=== PATIENT | female | born 1955 | race Caucasian/White ===

== ENCOUNTER 2018-02-28 07:30 | Day surgery (SDC) | payer BC ==
--- NOTE | 2018-02-11 06:29 | HP ---
CC: Dr. Roberto; Dr. Jordana Giordano; Dr. Duong Lama * PREOPERATIVE HISTORY AND PHYSICAL: DATE OF ADMISSION: 02/28/18 DATE OF PREOPERATIVE HISTORY AND PHYSICAL EXAMINATION: 02/10/18. This patient is scheduled for same-day surgery admission by Dr. Cruz on Saturday , 02/28/18. ATTENDING SURGEON: Dr. Cleo Cruz * (dictated by So Perez NP). CHIEF COMPLAINT: Left breast cancer. HISTORY OF PRESENT ILLNESS: The patient is a 62-year-old female, recently evaluated by Dr. Cruz for a new left breast cancer. The patient had a routine mammogram at the [facility] on 01/20/18 and indeterminate calcifications were noticed at the 12 o'clock position in the left breast; stereotactic biopsy was carried out on 01/23/18 at the [facility] and the pathology revealed ductal carcinoma in situ. The patient was not aware of any changes in the breast and denies pain. Maternal aunt had breast cancer, diagnosed at age 50. The patient's menarche was at age 13, menopause at age 51 , and first delivery was at age 33 and she did breast-feed. The patient has never had radiation to the chest; she had a benign right breast biopsy in 1999. She denies any family history of ovarian cancer. Dr. Cruz reviewed the findings with the patient and has recommended mammo-guided needle localization excision of the left breast ductal carcinoma in situ as a same-day surgery procedure. Dr. Cruz described the nature of the surgical procedure, the rationale for the procedure, the relevant risks and benefits, and today, I reviewed the expected postoperative care and recovery. The patient has had a chance to ask questions and stated that she understands the information and is satisfied with the answers given to her questions. She will sign surgical consent on the day of surgery. PAST MEDICAL HISTORY: Significant for acid reflux, laryngeal spasms occasionally at bedtime and weather related asthma and osteoporosis. PAST SURGICAL HISTORY: Excision of benign lesion, right breast in 1999 and office excision of a foreign body in her foot. MEDICATIONS: 1. Baclofen 10 mg p.o. every other night at bedtime for relief of laryngeal spasms. 2. Omeprazole 40 mg p.o. daily. 3. Alendronate 70 mg weekly on Saturday or Saturday. 4. Albuterol inhaler 2 puffs p.r.n. asthma, which she states is weather related. ALLERGIES: DEMEROL causes vomiting. FAMILY HISTORY: Maternal aunt diagnosed with breast cancer at age 50. No known ovarian cancer. No known anesthesia complications, bleeding tendencies, or clotting disorders. SOCIAL HISTORY: She is and is retired, but has a part-time job at [employer]. She is a nonsmoker and denies the use of alcohol or other substances. REVIEW OF SYSTEMS: Constitutional: No fevers, chills, excessive fatigue, or weight loss. Endocrine: No diabetes or thyroid disease or hormone replacement. Hematologic: No easy bruising or bleeding. No history of blood transfusions. Breasts: Abnormal left breast as described in history of present illness. Respiratory: No dyspnea on exertion. No recent asthma flares. No chronic cough. Cardiovascular: No anginal chest pain or palpitations. Gastrointestinal: History of GERD, controlled with omeprazole and associated laryngeal spasms controlled with baclofen. No nausea, vomiting, diarrhea, GI bleeding, or constipation. Genitourinary: No dysuria. Musculoskeletal: No back or joint pain. Neurologic: No headache or blurred vision. No areas of focal weakness. General: No previous anesthesia complications. No history of deep vein thrombosis or pulmonary embolism. PHYSICAL EXAMINATION GENERAL SURVEY: The patient is a 62-year-old female, well developed, well nourished, overweight, in no acute distress. VITAL SIGNS: Height 65 inches, weight 187 pounds, body mass index 31.1. Blood pressure 122/80, pulse 66 and regular, respiratory rate 18, temperature 98.1 tympanic. HEENT: Benign. NECK: Supple. No cervical lymphadenopathy. LUNGS: Breath sounds bilaterally clear and equal. HEART: Regular rate and rhythm. No murmurs or rubs appreciated. ABDOMEN: Obese, soft, nondistended, nontender throughout. Active bowel sounds. BREASTS: Symmetric. There is a scar in the upper outer quadrant of the right breast. Left breast without discrete masses and the stereotactic biopsy site is healed without any signs of infection. No mass is noted in the right breast. Nipples are normal to inspection. No nipple discharge. No palpable supraclavicular lymphadenopathy. No palpable axillary lymphadenopathy. PELVIC: Exam deferred. RECTAL: Exam deferred. EXTREMITIES: Warm without edema or skin ulceration. NEUROLOGIC: Alert and oriented x3, steady gait. SKIN: Warm, dry, intact. IMPRESSION: Malignant neoplasm, left breast. PLAN: Same-day surgery admission to Dr. Cruz's service on 02/28/18, for mammo-guided needle localization excision of the left breast ductal carcinoma in situ. TULIO PEREZ, TRAVEL ATTENDANTS [id number]/[facility] #: [id number] [facility]ITALCrispin
[~2018-02-28 07:30] MED LIST: Buffered Lidocaine 0.9% SYRIN* 5 ML/SYR SYRINGE INTRADERM ONE; Dexamethasone IV* 4 MG/ML 1 ML (4 MG) IV SLOW PU ONE; Famotidine IV* 10 MG/ML 2 ML (20 mg) IV ONE
[2018-02-28] MEDS ORDERED: Dexamethasone IV* 4 MG/ML 1 ML (4 MG) ONE (07:43)
[2018-02-28] MEDS ORDERED: Heparin VIAL(*) 5000 UNITS/ML VIAL (FIVE THOUSAND) ONE (07:43)
[2018-02-28] MEDS ORDERED: Famotidine IV* 10 MG/ML 2 ML (20 mg) ONE (07:43)
[2018-02-28] MEDS ORDERED: Lidocaine 2.5%/Prilocain 2.5%* 5 GM TUBE ONE (07:43)
[2018-02-28] MEDS ORDERED: ceFAZolin 2 GM PREMIX (*) 2 GM/50 ML BAG IVPB ONE (07:43)
[2018-02-28] MEDS ORDERED: Bupivacaine 0.5% PF 10 ML VIAL INJ ONE (11:34)
[2018-02-28] MEDS ORDERED: Lidocaine 1% MPF wEPI 200,000* 30 ML SDV ONE (11:35)
[2018-02-28] MEDS ORDERED: fentaNYL* 50 MCG/ML 2 ML VIAL (100 MCG VIAL) ONE (11:52)
[2018-02-28] MEDS ORDERED: Midazolam* 1 MG/ML 5 ML VIAL (5 MG) ONE (11:52)
[2018-02-28] MEDS ORDERED: oxyCODONE TAB* 5 MG TAB PO PRN (11:55)
[2018-02-28] MEDS ORDERED: PROCHLORPERAZINE INJ 5 MG/ML 2 ML VIAL IV PRN (11:55)
[2018-02-28] MEDS ORDERED: Naloxone* 0.4 MG/ML 1 ML VIAL IV PRN (11:55)
[2018-02-28] MEDS ORDERED: Acetaminophen TAB* 325 MG PO PRN (11:55)
[2018-02-28] MEDS ORDERED: fentaNYL* 50 MCG/ML 2 ML VIAL (100 MCG VIAL) IV PRN (11:55)
[2018-02-28] MEDS ORDERED: HYDROcodone/ACETAMIN 5-325 MG* 1 TAB PO PRN (11:55)
[2018-02-28] MEDS ORDERED: Propofol* 10 MG/ML 20 ML BTL IV PUSH ONE (12:00)
[2018-02-28] MEDS ORDERED: Lidocaine 2% PF * 5 ML VIAL ONE (12:00)
[2018-02-28] MEDS ORDERED: Ondansetron INJ* 2 MG/ML VIAL ONE (12:31)
--- NOTE | 2018-02-28 12:56 | BRIEFOPN ---
Brief Operative Note - Surgery Procedures: Procedures ESOPHAGEAL MANOMETRY (09/09/13) ESOPHAGOGASTRODUODENOSCOPY [EGD] W/CLOSED BIOPSY (07/15/13) OPEN BIOPSY OF BREAST (04/24/00) 02/28/18 Op Note Pre-op dx: left Breast DCIS Post-op dx: same Procedure: needle localization excision of left breast DCIS Surgeon: Anthony Asst: none Anesth: local-MAC EBL: 2 cc complications: none SCDs on during procedure ABx given pre-op Pt. tolerated the procedure well and was transferred to in a stable condition. CLFoster
[2018-02-28 13:50] VITALS: BP 156/85
--- NOTE | 2018-02-28 14:08 | RAD ---
Indication: Left breast cancer. Informed consent was obtained from the patient. Using usual aseptic technique and lidocaine as a local anesthetic the radiopaque marker was localized. Using a craniocaudal approach a 5 cm Kopans needle was then placed adjacent to the radiopaque marker. Mediolateral view demonstrates successful localization of the radiopaque marker. Specimen radiograph demonstrates the localized marker to be within the surgical specimen. IMPRESSION: Successful mammographically guided localization and excision of the radiopaque marker in the left breast.
--- NOTE | 2018-03-01 01:23 | OP ---
CC: [facility]; Dr. Dixon Roberto OPERATIVE SUMMARY: DATE OF OPERATION: 02/28/18 DATE OF : 55 SURGEON: Dr. Cruz. COMPRESS MACHINE OPERATOR: There was no library circulation assistant for this case. PRE-OP DIAGNOSIS: Left breast ductal carcinoma in situ. POST-OP DIAGNOSIS: Left breast ductal carcinoma in situ. OPERATIVE PROCEDURE: Needle localization, excision of left breast ductal carcinoma in situ. INDICATIONS: Ms. Mckeon is a 62-year-old woman recently diagnosed with ductal carcinoma in situ of the left breast prompting a plan for surgical intervention. DESCRIPTION OF PROCEDURE: On the morning of surgery, she underwent needle localization without diffi culty. She was then brought to the operating room, has been placed on the OR table in a supine posit ion and given IV sedation. The left breast was prepped and draped in the usual sterile fashion takin g care not to dislodge the localizing wire. After infiltrating with local anesthetic, a curvilinear elliptical incision was made encompassing the wire. Subcutaneous tissue was then divided with electr ocautery to excise the mass of tissue from around the wire. Once it was removed, it was marked in th e usual fashion and handed off as a specimen. Hemostasis was then assured with electrocautery. Once this was adequate, the wound was irrigated with saline and clips were placed in the cavity to froylan i ts confines. Additional local was instilled into the wound and then closure was accomplished with 3- 0 Vicryl to reapproximate the subcutaneous tissue and the skin was closed with 4-0 Prolene in a subcu ticular fashion. Steri- Strips and a dry sterile dressing were applied. All sponge and instrument c ounts were correct. The patient tolerated the procedure well and was transferred to recovery in a st able condition. [id number]/[facility] #: [id number]
== END 2018-02-28 14:15 | disposition home or self-care (01) ==
LOC: SDS 07:30
PROVIDERS: ATTEND Surgery
DX: D05.12 Intraductal carcinoma in situ of left breast (principal); R00.2 Palpitations; J45.909 Unspecified asthma, uncomplicated; K21.9 Gastro-esophageal reflux disease without esophagitis; M81.0 Age-related osteoporosis without current pathological fracture; J38.5 Laryngeal spasm
CPT/HCPCS: 88307; A9270-GY; J0690; J1100; J1644; J2001; J2250; J2405; J2704; J3010

== ENCOUNTER 2018-05-26 11:15 | Emergency (ER) | payer BC ==
--- NOTE | 2018-05-26 12:15 | ED ---
HPI Chest Pain - HPI Summary HPI Summary: Pt here w/ Lt midaxillary pain that travels across front of chest. This started when she was lifting and moving her elderly mother around 1 week ago - heard a "pop" and felt "structures rolling over each other" mid lift w/ acute pain. She has been tolerating it all week (still lifting and moving her mother) but pain got more unbearable last night w/o reinjury especially w/ coughing, sneezing, blowing her nose. Pain is also worse w/ movement of Lt UE and slightest movement of upper torso aggravate the pain - worse also w/ palpation. Tried acetaminophen and heating pad w/o relief. Denies anterior chest pain/pressure, SOB, sweats, edema of LE's. Pain 02/04 - sharp. NOTE: 1 month ago completed radiation for breast cancer on Lt side - lumpectomy in February. Has osteopenia and asthma. Supposed to start tamoxifen today but didn 't want to start with the way she is feeling. - History of Current Complaint Chief Complaint: EDChestPainROMI Time Seen by Provider: 05/26/18 11:34 Hx Obtained From: Patient, Family/Director Of Marketing Communications - Pain Intensity: 7 - Allergy/Home Medications Allergies/Adverse Reactions: Allergies Allergy/AdvReac Type Severity Reaction Status Date / Time meperidine Allergy Intermediate Nausea And Verified 05/26/18 12:01 Vomiting PMH/Surg Hx/FS Hx/Imm Hx Previously Healthy: Yes Endocrine/Hematology History: Reports: Other Endocrine/Hematological Disorders - breast cancer Denies: Hx Anticoagulant Therapy, Hx Blood Disorders Cardiovascular History: Denies: Hx Hypercholesterolemia, Hx Hypertension, Hx Myocardial Infarction, Other Cardiovascular Problems/Disorders Respiratory History: Reports: Hx Asthma - rescue inhaler, Other Respiratory Problems/Disorders - Laryngeal spasms at bedtime, takes baclofen GI History: Reports: Hx Gastroesophageal Reflux Disease - esomeprazole, Hx Irritable Bowel - Had 25 years ago, not since then, Other GI Disorders - MRI showed a couple of cysts on liver, Hdez reviewing History: Denies: Other Problems/Disorders Musculoskeletal History: Reports: Hx Arthritis - a little in her back and hips, Other Musculoskeletal History - Osteopenia Denies: Hx Osteoporosis Sensory History: Reports: Hx Contacts or Glasses - Glasses Denies: Hx Cataracts, Hx Glaucoma, Hx Hearing Aid Opthamlomology History: Reports: Hx Contacts or Glasses - Glasses Denies: Hx Cataracts, Hx Glaucoma Neurological History: Denies: Other Neuro Impairments/Disorders - Cancer History Hx Chemotherapy: No - recent diagnosis - Surgical History Surgery Procedure, Year, and Place: Removed a benign mass right breast 1999- size of lemon; radiation and about to start chemo Hx Anesthesia Reactions: No Infectious Disease History: No Infectious Disease History: Denies: Traveled Outside the [place] in Last 30 Days - Family History Known Family History: Positive: None - Social History Lives: With Family Alcohol Use: Rare Hx Substance Use: No Substance Use Type: Reports: None Hx Tobacco Use: No Smoking Status (MU): Never Smoked Tobacco Review of Systems Constitutional: Negative Negative: Fever, Chills, Fatigue Eyes: Negative ENT: Negative Positive: Chest Pain. Negative: Palpitations Respiratory: Negative Negative: Shortness Of Breath, Cough Gastrointestinal: Negative Negative: Abdominal Pain, Vomiting, Diarrhea, Nausea Genitourinary: Negative Positive: Arthralgia, Myalgia Skin: Negative Neurological: Negative Psychological: Normal All Other Systems Reviewed And Are Negative: Yes Physical Exam Triage Information Reviewed: Yes Vital Signs On Initial Exam: Initial Vitals Temp Pulse Resp BP Pulse Ox 97.9 F 56 16 156/74 96 05/26/18 11:27 05/26/18 11:27 05/26/18 11:27 05/26/18 11:27 05/26/18 11:27 Vital Signs Reviewed: Yes Appearance: Positive: Well-Appearing, Well-Nourished, Pain Distress - mild Skin: Positive: Warm, Skin Color Reflects Adequate Perfusion, Dry - no erythema , no ecchymosis, no lesions over affected areas Head/Face: Positive: Normal Head/Face Inspection Eyes: Positive: Normal, EOMI, Conjunctiva Clear - anicteric sclera ENT: Positive: Hearing grossly normal, Pharynx normal - mucosa moist Neck: Positive: Supple, Nontender Respiratory/Lung Sounds: Positive: Clear to Auscultation, Breath Sounds Present , Other - Lt midaxillary region w/ mild TTP - no gross deformity, no crepitus, no flail chest. Negative: Rales, Rhonchi, Stridor, Tracheal Deviation, Wheezes , Unable to speak in full sentences, Fatigue Cardiovascular: Positive: Normal, RRR, S1, S2. Negative: Murmur, Rub, Leg Edema Left, Leg Edema Right Abdomen Description: Positive: Nontender, Soft Bowel Sounds: Positive: Present Musculoskeletal: Positive: Strength/ROM Intact - UE's, Pain @ - Lt anterior chest wall w/ mild TTP - mild edema compared to Rt but could be baseline - pt does not feel her chest is different from usual other than painful Neurological: Positive: Normal, Sensory/Motor Intact, Alert, Oriented to Person Place, Time, CN Intact II-III Psychiatric: Positive: Normal Diagnostics - Vital Signs Vital Signs Temp Pulse Resp BP Pulse Ox 05/26/18 11:27 97.9 F 56 16 156/74 96 - Laboratory Result Diagrams: 05/26/18 13:39 05/26/18 13:39 Lab Statement: Any lab studies that have been ordered have been reviewed, and results considered in the medical decision making process. Re-Evaluation - Re-Evaluation First Eval Change: Unchanged - no change w/ ASA Chest Pain Course/Dx - Course Course Of Treatment: ECG: NSR, no ST elevations. Labs: WNL - trop neg, neg Ddimer. CXR/Rib XR: no fx, no acute cardiopulm d/o. Suspect JOSE ALFREDO injury - could have occult fx but no cardiopulm involvement - advise lidoderm pain patch and tylenol w/ codeine as well as pulm toileting and obs for danger s/sx. Close f/u w/ PCP. Avoid NSAID's d/t GERD hx. Pt and agree w/ plan. - Diagnoses Provider Diagnoses: Chest wall injury Discharge - Sign-Out/Discharge Documenting (check all that apply): Patient Departure - Discharge Plan Condition: Stable Disposition: HOME Prescriptions: Acetaminop/Codeine 30 MG TAB* [Tylenol/Codeine 30 MG TAB*] 1 tab PO Q6H PRN #20 tab MDD 4 PRN Reason: Pain Lidocaine PATCH 5%* [Lidoderm 5% Patch*] 1 patch TRANSDERM DAILY PRN #30 patch PRN Reason: Pain Patient Education Materials: Rib Fracture (ED) Referrals: Dixon Roberto MD [Primary Care Provider] - Additional Instructions: You do not appear to have a rib fracture today however education has been provided for this diagnosis because it is similar to intercostal rib muscle strain which I believe you have. You may continue to use heat alternating with ice as well as Lidoderm pain patches - one has been provided for you today. If this helps your pain, you may cigar packer and picker more at the pharmacy. You've also been provided with Tylenol with codeine to help you sleep at night. Make sure you are using your incentive spirometer to prevent pneumonia. If you develop fevers , chills, cough, difficulty breathing, chest tightness or worsening of pain, return to the emergency department. Otherwise please follow up with your PCP this week. Call today to schedule an appointment. - Billing Disposition and Condition Condition: STABLE Disposition: Home
[2018-05-26] MEDS ORDERED: Aspirin TAB* 325 MG PO ONE (12:26)
[2018-05-26] MEDS ORDERED: Aspirin 81 mg CHEW TAB* 81 MG TAB.CHEW ONE (12:48)
[2018-05-26] MEDS ORDERED: Aspirin 81 mg CHEW TAB* 81 MG TAB.CHEW PO ONE (12:50)
--- NOTE | 2018-05-26 13:04 | RAD ---
Indication: Mid axillary and LEFT anterior chest pain. LEFT upper rib pain following injury one week ago. Comparison: September 10, 2013 Technique: Dual energy PA chest and 4 view dedicated LEFT unilateral rib series. Report: Elevated lung volumes and mild prominence of interstitial markings without change. No focal pulmonary lesion, compelling alveolar consolidation, pleural effusion, pneumothorax. Upper normal heart size. Unremarkable central pulmonary vasculature and mediastinal contours. Normal contour of the thoracic aorta. Negative for LEFT rib fracture or focal osseous lesions. LEFT breast surgical clips. IMPRESSION: #. Negative for LEFT rib fracture or pneumothorax. #. Stigmata of probable chronic obstructive pulmonary disease. No evidence for acute intrathoracic disease.
[2018-05-26 14:02] LABS: ABS Basophils 0 10^3/ul (0-0.2); ABS Eosinophils 0.1 10^3/ul (0-0.6); ABS Lymphocytes 0.8 10^3/ul (1.0-4.8); ABS Monocytes 0.3 10^3/ul (0-0.8); ABS Neutrophils 2.6 10^3/ul (1.5-7.7); ABS Nucleated RBC 0 10^3/ul; Eosinophil % 1.9 % (0-6); Hematocrit 38 % (35-47); Hemoglobin 13.1 g/dl (12.0-16.0); Lymphocyte % 20.3 % (25-47); Mean Corpuscular HGB Conc 34 g/dl (31-36); Mean Corpuscular Hemoglobin 31 pg (27-31); Mean Corpuscular Volume 91 fL (80-97); Nucleated Red Blood Cells % 0.1; Platelet Count 136 10^3/ul (150-450); Red Blood Count 4.18 10^6/ul (4.00-5.40); Red Cell Distribution Width 14 % (10.5-15); White Blood Count 3.8 10^3/ul (3.5-10.8)
[2018-05-26 14:25] LABS: INR 0.95 (0.77-1.02)
[2018-05-26 14:32] LABS: EGFR Non-African American 87.7 (>60)
[2018-05-26] MEDS ORDERED: Lidocaine PATCH 5%* 1 PATCH TRANSDERM ONE (15:29)
[2018-05-26 16:05] VITALS: BP 137/81
== END 2018-05-26 16:04 | disposition home or self-care (01) ==
LOC: ED 11:15
DX: S29.9XXA Unspecified injury of thorax, initial encounter (principal); X50.0XXA Overexertion from strenuous movement or load, initial encounter; Y93.F2 Activity, caregiving, lifting; Y92.9 Unspecified place or not applicable; R00.1 Bradycardia, unspecified; J45.909 Unspecified asthma, uncomplicated; K21.9 Gastro-esophageal reflux disease without esophagitis; Z88.5 Allergy status to narcotic agent
CPT/HCPCS: 36415; 80053; 83605; 83735; 84443; 84484; 85025; 85379; 85610; 85730; 93005; 99282; A9270-GY